=== PATIENT | male | born 1975 | race Caucasian/White ===

== ENCOUNTER → 2020-11-02 13:27 | Outpatient (BNVA) | payer BC, SELFPAY | PROVIDERS: PCP Internal Medicine; Visit Provider Urology ==

== ENCOUNTER → 2021-08-30 14:27 | Outpatient (BNVA) | payer BC, SELFPAY | PROVIDERS: PCP Internal Medicine; Visit Provider Urology ==

== ENCOUNTER 2021-10-10 08:21 | Day surgery (SDC) | payer BC, SELFPAY ==
[2021-10-10] VITALS (7 sets, daily range): BP systolic 99–157; BP diastolic 67–90; PULSE 84–92; RESP 16–18; TEMP 36.6–36.8; O2SAT 95–96; BMI 38.5
[2021-10-10 08:58] LABS: Glucose, Whole Blood 185 mg/dL (60-115)
--- NOTE | 2021-10-10 10:17 | HO.ANESPROP2 ---
HPI - Anesthesia Eval Consult details Narrative: 46 yo male patient for circumcision PMFSH Active Problems Active Problems: All Active Problems (Updated 10/04/21 @ 16:03 by Xiao Canales RN) Balanitis (Acute) Phimosis (Acute) Obesity Snores but never had sleep study DM. Past Medical History Medical History Anxiety Diabetes mellitus Glaucoma HTN (hypertension) Hyperlipidemia Severe obesity Family History Family history of problems with anesthesia: No Surgical History Surgical History History of knee surgery History of nasal surgery History of Problems with Anesthesia: No Social History Social History Patient Tobacco Use Status: Never used Tobacco Are you DNR?: No Advance Directives: No Advance Directives Information Provided: Yes Meds Allergies Allergy/AdvReac Type Severity Reaction Status Date / Time No Known Allergies Allergy Verified 08/30/21 14:37 Active Medications: Current Medications Lactated Ringer's (Lr) 1,000 mls @ 100 mls/hr IVCONT .Q10H FANNY Not used sildenafil in weeks Home Medications Medication Instructions Recorded Confirmed Last Taken Type blood sugar diagnostic #10 ea 11/02/20 Unknown History canagliflozin 100 mg tablet 100 mg PO DAILY 11/02/20 10/04/21 Unknown History glipizide 5 mg tablet 5 mg PO 11/02/20 Unknown History lisinopril 10 mg tablet 10 mg PO DAILY 11/02/20 10/04/21 Unknown History lorazepam 0.5 mg tablet 0.5 mg PO TID PRN 11/02/20 10/04/21 Unknown History meloxicam 15 mg tablet 15 mg PO DAILY 11/02/20 10/04/21 09/30/21 History metformin 500 mg tablet,extended 2,000 mg PO DAILY 11/02/20 10/04/21 Unknown History release 24 hr naproxen 500 mg tablet 500 mg PO BID 11/02/20 10/04/21 Unknown History pioglitazone 30 mg tablet 30 mg PO DAILY 11/02/20 10/04/21 Unknown History rosuvastatin 20 mg tablet 20 mg PO BEDTIME 11/02/20 10/04/21 Unknown History zolpidem 10 mg tablet 10 mg PO BEDTIME 11/02/20 10/04/21 Unknown History dulaglutide 4.5 mg/0.5 mL 4.5 mg SUBCUT QWEEK 08/30/21 10/04/21 Unknown History subcutaneous pen injector (Trulicity) sildenafil 100 mg tablet 0.5 tab PO DAILY PRN 10/04/21 10/04/21 Unknown History Exam Exam Date and Time: October 10, 2021 1017 Height,Weight and Vital Signs: Height 6 ft 2 in Weight 136.078 kg Last Vital Signs Temp 98 F 10/10/21 08:40 Pulse 92 10/10/21 08:40 Resp 17 10/10/21 08:40 BP 157/90 H 10/10/21 08:40 Pulse Ox 95 10/10/21 08:40 Pertinent Lab Results Pertinent Lab Results: Laboratory Tests 10/10/21 08:52 POC Glucose 185 H Airway Mallampati Class: II (Short neck) TM Dist: >3cm Neck ROM: Full Heart: RRR Lungs: CTAB Assessment and Plan Assessment Anesthesia Assessment: Anesthesia Plan Discussed and Chart Reviewed Final Anesthetic Review Family History of Problems with Anesthesia: No History of Problems with Anesthesia: No NPO: Yes ASA Class: III Final Preanesthetic Review: No Changes in Pt Med Stat, Meds/Allgs Chart Reviewed, Consent Obtained/Reviewed and Anes Risks/Benef Reviewed Patient Risk: Intermediate Procedure Risk: Low Assessment/Block/Sedation in SS: Assess/Block/Sedation-SS Anesthetic Plan Anesthetic Plan: GA Disposition: Standard PACU
--- NOTE | 2021-10-10 10:18 | MHC.SHP ---
Pre-Procedural Eval Section A Date of Service: 10/10/21 The patient is an INPATIENT: No Changes since office visit: No Cold of Flu in the past 2 weeks, No New Medical Problems, No Changes in Medication and No Patient answered all questions The History & Physical has been completed within 30 days and I have reviewed it.: No Section B Chief Complaint: balanitis Details of Present Illness: recurring balanitis with phimosis. Recommend circumcision Relevant Family History (Specify if Yes): No Relevant Social History: None Present Medications: see Short Stay Collaborative assessment Medical History: No relevant PMH History of Previous Operations: No relevant previous surgery Allergies: Allergies Allergy/AdvReac Type Severity Reaction Status Date / Time No Known Allergies Allergy Verified 08/30/21 14:37 Review of Systems Sugical H&P ROS: Negative: Constitution, Cardiovascular, Respiratory, Neurological, Psychiatric, Hem-Onc, Allergic/Immunologic, Gastrointestinal, Genitourinary, Musculoskeletal, Integumentary, Endocrine and Eyes/Ears/Nose/Throat Exam Surgical H&P Exam: Normal: HEENT, Normal: Heart, Normal: Lungs, Normal: Extremities, Normal: Abdomen, Normal: Skin and Normal: Neurological Plan Diagnosis/Plan: Unchanged ( circumcision) I have reviewed the history and physical and performed a pertinent physical examination on my patient. No changes have occurred unless specified.
[2021-10-10] MEDS: Lactated Ringers 1,000 ML 100 ML IVCONT (10:22)
--- NOTE | 2021-10-10 11:23 | P.OP_ITS ---
Operative Note Operative Note Date of Service: 10/10/21 Narrative: PreOperative Diagnosis: Balanitis and phimosis Post Operative Diagnosis: Balanitis and phimosis Procedure: Circumcision Surgeon: Dr Mehul Mccallum Anesthesia: General Indications for procedure: Recurring balanitis in inability to withdrawal foreskin of penile glans. Risks and benefits including bleeding, scarring, need for revision surgery been discussed. Procedure: After informed consent was verified the patient was brought to the operating room and placed in a supine position. Anesthesia was administered per protocol. The patient was prepped and draped sterile fashion. Safety pause time-out was performed. Antibiotics have been given. The penis was examined and proximal incision marked that lay just proximal to the resting position of the penile sulcus. This was followed around the circumference of the penis. A penile ring block was performed using 1% lidoca ine with no epinephrine. Approximately 8 cc. The proximal incision was developed with sharp blade running circumferentially around the penis. The skin was to give a 1 cm separation between the foreskin in the remaining penile shaft skin. The foreskin was withdrawn and the penile glans exposed. A a distal incision was made approximately 5 mm proximal to the penile sulcus. At the area of the frenulum care was taken to empty the penile frenulum intact. Using clamps the dorsal skin was elevated. Using Metzenbaum scissors the avascular plane was entered and proximal and distal incision were joined. The bridging skin was elevated and clamped. It was then divided using Bovie. The sleeve of tissue was then removed circumferentially around the penis using cautery in order to minimize bleeding. The shaft was then examined in any bleeding areas were controlled. More local anesthetic was injected into the plane beneath avascular plane to help with postprocedure pain management. The skin edges after they were appropriately examined low reapposed. A 3-0 chromic suture was placed at 12:00 o'clock and 06:00 o'clock positions. Interrupted 3-0 was then placed the 09:00 o'clock and 3 o'clock position. Each quadrant was then filled with 3 sutures using 4-0 chromic. At the completion of the procedure there was adequate hemostasis. The incision was washed and dried. Antibiotic cream was applied to the incision. A Blanca wrap was applied followed by a Coban dressing. Xeroform gauze had been used to cover antibiotic ointment. He tolerated the procedure well and was extubated in the room and transferred in stable condition to the recovery area. Pathology: Foreskin Drains: none
[2021-10-10] MEDS: Acetaminophen 325 MG TABLET 650 MG PO (11:49)
== END 2021-10-10 13:01 | disposition home or self-care (01) ==
PROVIDERS: PCP Physician Assistant Medical; Visit Provider Urology
PROC: (CPT 54161; principal; 2021-10-10 10:10)
DX: N48.1 Balanitis (principal); N47.1 Phimosis; I10 Essential (primary) hypertension; E11.9 Type 2 diabetes mellitus without complications; E78.5 Hyperlipidemia, unspecified; H40.9 Unspecified glaucoma; E66.01 Morbid (severe) obesity due to excess calories; Z79.84 Long term (current) use of oral hypoglycemic drugs; Z79.899 Other long term (current) drug therapy
CPT/HCPCS: 54161; 82947; 88304; J0690; J1100; J1170; J2405; J3010

== ENCOUNTER → 2021-11-09 13:48 | Outpatient (BNVA) | payer BC, SELFPAY | PROVIDERS: PCP Physician Assistant Medical; Visit Provider Urology | DX: Z13.89 Encounter for screening for other disorder (principal) ==